=== PATIENT | female | born 1990 | race Two or more races ===

== ENCOUNTER 2024-03-13 05:55 | Day surgery (SDC) | payer MEDICAID, SELFPAY ==
[2024-03-11 10:50] VITALS: BMI 46.7
--- NOTE | 2024-03-11 10:55 | EKG_ITS ---
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
[2024-03-11 11:26] LABS: Basophils # (Auto) 0.1 Thou/mm3 (0.0-0.2); Basophils % (Auto) 0 % (0-2.5); Eosinophils # (Auto) 0.3 Thou/mm3 (0.0-0.5); Eosinophils % (Auto) 2 % (0-10); Hematocrit 39.5 % (36.0-46.0); Hemoglobin 13.2 g/dL (12.0-16.0); Immature Granulocytes % (Auto) 0 % (0-0); Immature Granulocytes Auto 0.06 Thou/mm3 (0.00-0.00); Lymphocytes # (Auto) 3.6 Thou/mm3 (1.0-4.8); Lymphocytes % (Auto) 26 % (10-50); Mean Corpuscular HGB Conc 33.4 g/dl (31.0-37.0); Mean Corpuscular Hemoglobin 28.3 pg (25.0-35.0); Mean Corpuscular Volume 85 fL (80-100); Monocytes # (Auto) 0.6 Thou/mm3 (0.0-0.8); Monocytes % (Auto) 4 % (0-12); Neutrophils # (Auto) 9.3 Thou/mm3 (1.8-7.7); Neutrophils % (Auto) 67 % (37-80); Nucleated Red Blood Cell % 0 /100 WBC (0); Platelet Count 341 Thou/mm3 (140-440); RDW Standard Deviation 41.2 fL (36.4-46.3); Red Blood Count 4.67 Miln/mm3 (4.00-5.20); White Blood Count 13.9 Thou/mm3 (3.6-11.0)
[2024-03-11 11:40] LABS: HCG,Qualitative Serum Negative
[2024-03-11 11:44] LABS: Alanine Aminotransferase 68 U/L (10-49); Albumin/Globulin Ratio 1.7 (1.2-2.2); Alkaline Phosphatase 162 U/L (46-116); Anion Gap 9 (7-16); Aspartate Amino Transferase 34 U/L (0-34); BUN/Creatinine Ratio 19 Ratio (12-20); Bilirubin,Total 1.2 mg/dL (0.3-1.2); Blood Urea Nitrogen 13 mg/dL (9-23); Calcium 9.8 mg/dL (8.3-10.6); Calcium (Corrected) 9.8 mg/dL (8.5-10.1); Carbon Dioxide 24.9 mMol/L (20.0-31.0); Chloride 104 mMol/L (98-107); Creatinine (Component) 0.7 mg/dL (0.6-1.3); Estimated Creatinine Clearance 136.8 mL/min (>60); Globulin 2.9 gm/dL (2.3-3.5); Glucose 104 mg/dL (74-106); Osmolality,Calculated 275 (275-295); Sodium 138 mMol/L (136-145); Total Protein 7.9 gm/dL (5.7-8.2); eGFR > 60 See Note
--- NOTE | 2024-03-11 12:54 | SUR.PREOP ---
WBC 13.9, Dr Pepe notified and ok to proceed.
[2024-03-13] VITALS (7 sets, daily range): BP systolic 112–133; BP diastolic 64–81; PULSE 72–86; RESP 12–20; TEMP 36.2–36.7; O2SAT 99–100; BMI 47.2
[2024-03-13] MEDS: RINGERS LACTATED 1000 ML 1,000 ML 20 ML IV (06:34)
--- NOTE | 2024-03-13 08:18 | ESOP_ITS ---
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 Her identity was confirmed using double identifiers, and she was placed on the operating table. General anesthesia was administered, and the airway was secured. The patient was positioned in the dorsal lithotomy position in Hernán stirrups. The abdomen and perineum were prepped in the usual sterile fashion, and sterile drapes were applied. The bladder was emptied with a straight catheter, and a sponge stick was inserted into the vagina for uterine manipulation. A 5 mm incision was made at the base of the umbilicus using a scalpel. Laparoscopic entry was achieved under direct visualization with an Optiview laparoscopic trocar. Once intra-abdominal placement was confirmed, pneumoperitoneum was established and insufflated to 15 mmHg. The camera was introduced, and a thorough initial survey of the abdomen was performed. The uterus and adnexa were observed to be within normal limits, with no gross abnormalities identified in the upper abdomen. Two accessory ports were placed bilaterally, 2 cm superior and medial to the anterior superior iliac spine (ASIS). The Enseal 37 mm curved jaw device was used to perform a bilateral salpingectomy in the usual manner. The dissection sites were inspected and noted to have satisfactory hemostasis. All instruments were removed, and pneumoperitoneum was desufflated. The laparoscopic ports were withdrawn, and the skin was closed with 4-0 Monocryl in a subcuticular fashion. The surgical site was cleaned, and sterile dressings were applied. The patient was undraped, anesthesia was reversed, and she was transferred to the recovery room awake and in stable condition. The procedure was well-tolerated. Instrument, sponge, and lap counts were correct ?2, and no complications were encountered. Estimated blood loss (ml): 10 Complications: none Surgical staff Operation Date: 03/13/24 07:45 Case Staff Anesthesiologist: Nestor Crabtree RN First Assistant: Carrie Morris Diagnosis Discharge Diagnosis (1) Encounter for sterilization: Status: Acute Problem List Completed Was Problem List Reviewed/Reconciled?: Yes
--- NOTE | 2024-03-13 08:22 | SUR.PHASEI ---
0822 Patient arrived to recovery resting comfortably in [facility], drowsy and able to arouse with verbal prompting, breathing unlabored, vital signs stable, denies pain, dressing intact to lower abdomen; dermabond, no bleeding noted, bilateral radial pulses present when palpated, report received from Jassi ZAMAN and Dr. Crabtree
--- NOTE | 2024-03-13 09:19 | SUR.PHASEII ---
0919 Patient meets discharge criteria from recovery, awake and alert, breathing unlabored, vital sign stable, denies pain, dressing intact; no bleeding noted, patient drinking 7up; tolerating well, denies nausea, patient assisted with dressing into her clothing by her daughter, discharge instructions given to patient and patients / daughter with the assistance with telephone accounting systems analyst Martina ID# [id number], signed discharge instructions. Patient given all her belongings prior to discharge, transported via wheelchair and left in a private vehicle.
== END 2024-03-13 09:19 | disposition home or self-care (01) ==
PROVIDERS: PCP Family Medicine; Referring Provider Obstetrics & Gynecology; Visit Provider Obstetrics & Gynecology
PROC: (CPT 58720; principal; 2024-03-13 07:30)
DX: Z30.2 Encounter for sterilization (principal); Z01.810 Encounter for preprocedural cardiovascular examination
CPT/HCPCS: 58661; 36415; 80053; 84703; 85025; 86850; 86900; 86901; 93005; A4217; A4649; J1885; J2250; J2405; J2704; J2765; J3010; J3490; J7120; A9270

== ENCOUNTER 2024-09-25 23:08 | Emergency (ER) | payer MEDICAID, SELFPAY ==
[2024-09-25 23:09] VITALS: BMI 44.2
[2024-09-25 23:35] VITALS: BP 159/82; PULSE 96; RESP 19; TEMP 36.8; O2SAT 97
--- NOTE | 2024-09-26 00:03 | EDNOTE_ITS ---
ED Female Urogenital RME/HPI General Chief complaint: General Adult/Misc Complain Stated complaint: PAINFUL LUMP R LABIA Time Seen by Provider: 09/25/24 23:47 Arrival date/time: 09/25/24 23:08 RME / HPI RME / HPI Narrative: This section includes all my notes and documentations, including HPI, PE, and ED course. William Cortez MD HPI: 33yo female here for a painful lump to her right vaginal area. Patient states the lump started developing a few days ago and has been getting progressively worse. No other complaints reported. ROS: All negative except as documented in HPI. Physical Exam: General: Alert and oriented. No acute distress when remaining still. Eyes: Conjunctivae and lids clear. ENT: No nasal congestion. Neck: Supple. Lungs: No respiratory distress. Abdomen: Soft and nontender. Normal bowel sounds. No distension. No rebound or guarding. 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 [place]-sized abscess noted in right labia majora area. Skin: Warm and dry. Neuro: Alert and oriented X 3. At this point, diagnoses include vaginal abscess. Treatment here included incision and drainage (see procedure note) and Rocephin 1 g IM. She felt better. Provided wound care instructions and recommended outpatient follow-up. Based on my best medical judgment, made decision no further evaluation or treatment indicated at this time. Patient understands and agrees to the discharge instructions customized and printed, see below. Discharge Instructions from Dr. Cortez: ?Your abscess was successfully incised and drained pus. ?Take cefdinir and clindamycin to help kill the germs causing your infection. ?Three times per day, soak in warm water with antibacterial soap and Epsom salt. Try to gently squeeze out more pus before the wound closes. ?After drying as much as possible, apply new dressing. ?See a private doctor on 09/29/2024 for recheck and further care, to make sure you healed without any complications. If not, asked for a referral to see parachute packer to help you. ?-Seek immediate medical care with fever > 100.4, spreading redness, or with any concerns. William Cortez MD Related Data Home Medications ?Medication ?Instructions ?Recorded ?Confirmed labetalol 200 mg tablet 200 mg PO DAILY 03/11/24 Previous Rx's ?Medication ?Instructions ?Recorded cefdinir 300 mg capsule 300 mg PO BID #14 [facility] 09/26 clindamycin HCl 300 mg capsule 300 mg PO QID 7 days #2 8 [facility] 09/26/24 Allergies Allergy/AdvReac Type Severity Reaction Status Date / Time No Known Allergies Allergy Verified 09/25/24 23:13 Review of Systems Review of Systems Systems Reviewed: All systems reviewed, normal except as documented Past Medical History Past Medical History NEUROLOGIC: Negative Neurological Disorders, Seizures or Migraine CARDIAC: Positive Cardiac Disorders and Hypertension; Negative Myocardial Infarction, Cardiac Arrhythmia, Atrial Fibrillation, Angina, Heart Murmur, Coronary Artery Disease, Atherosclerotic Heart Disease, Peripheral Vascular Disease, Hypercholesterolemia, Aneurysm, Congestive Heart Failure, Congenital Heart Disease, Valvular Heart Disease, Rheumatic Fever, Cardiomyopathy, Edema, Pericarditis, Cellulitis, Deep Vein Thrombosis, Hypotension or Varicose Veins RESPIRATORY: Negative Chronic Obstructive Pulmonary Disease (COPD) GASTROINTESTINAL: Positive Gastrointestinal Disorders and Obesity; Negative Hepatitis GENITOURINARY: Negative Genitourinary Disorders or Renal Disease REPRODUCTIVE: Positive Previous Pregnancies (7); Negative Pelvic Inflammatory Disease MUSCULOSKELETAL: Negative Musculoskeletal Disorders ENDOCRINE: Positive Endocrine Disorders; Negative Diabetes Mellitus Type 1 or Diabetes Mellitus Type 2 HEMATOLOGIC: Negative Blood Disorders OTHER HISTORY: Positive Chicken Pox; Negative Hospitalization, Autoimmune Disease, Shingles, Falls, Blood Transfusions, Blood Transfusion Reaction, Anesthesia Reactions, MRSA, Clostridium Difficile or Cancer Family History FAMILY HISTORY: Positive Family Surgery; Negative Family Psychiatric Problems, Family Respiratory Disorders, Family Cardiac Disorders, Family Gastrointestinal Problems, Family Cancer or Family Anesthesia Reaction Surgical History SURGICAL: Positive Abdominal Surgery; Negative Cardiac Surgery, Pacemaker, Endocrine Surgery, Ear Surgery, Nephrectomy, Joint Replacement, Neurologic Surgery, Mastectomy or Section Social History SMOKING STATUS: Never smoker SECOND HAND EXPOSURE: No ED Exam Narrative Physical exam: As noted in HPI. Course Quality Measures none Orders Category Date Time Status cefTRIAXone [Rocephin] 1,000 mg Med 09/26/24 00:36 Discontinued Lidocaine 1% 20 ml [Xylocaine 1% 20 ML] 2.1 ml IM X1 Vital Signs Vital signs: Vital Signs Temperature 98.2 F 09/25/24 23:35 Pulse Rate 96 09/25/24 23:35 Respiratory Rate 19 09/25/24 23:35 Blood Pressure 159/82 H 09/25/24 23:35 Pulse Oximetry (%) 97 09/25/24 23:35 Oxygen Delivery Method Room Air 09/25/24 23:35 PROCEDURES: Abscess I/D Site: other (vaginal area) Side (if applicable): right Technique: other (incised with #15 blade) Amount of fluid expressed (mL): 1 Irrigation: Yes Packing used?: none Urogenital - Female MDM Narrative MDM Narrative:: 33yo female here for a painful lump to her right vaginal area. Patient states the lump started developing a few days ago and has been getting progressively worse. No other complaints reported. Patient data External records reviewed:: [facility] previous records (Per chart review, patient has no relevant previous ED visits.) Clinical information provided by:: patient Social determinants that could affect healthcare access:: none Patient has the following chronic illnesses:: HTN How is presenting disease/condition affected by chronic disease/condition?: uneffected by Evaluation data The following diagnostics were reviewed and interpreted by me:: other (specify) (none) Lab and/or radiology exams considered but not ordered:: none Interpretation Summary: none Medications / Prescriptions Medications or Prescriptions considered but not ordered:: none Medication administrations:: Medication Administration History Discontinued Medications Ceftriaxone Sodium 1,000 mg/ (Lidocaine HCl 2.1 ml) 0 mg IM X1 ONE Stop: 09/26/24 00:37 Last Admin: 09/26/24 00:43 Dose: 1,000 mg Documented By: DT Rocephin and incision and drainage. Consultations Consultation(s) initiated? (list below): No Diagnosis Urogenital Female Differential Diagnosis: urinary tract infection, bacterial vaginosis, trichomoniasis, cervicitis, ovarian cyst, vaginitis, ruptured ovarian cyst, cystitis and other (Abscess) Most likely diagnosis given after review of the tests above:: Abscess Admission Indicated Admission indicated?: not indicated Explain why admission is indicated or not indicated:: With significant improvement and no condition needing emergent intervention, there was no indication for admission. Admission Request Was there a request for admission?: No Disposition Plan Disposition Plan: Discharge Discharge Attestation Discharge Attestation: The patient and all family members were given an opportunity to ask questions and understood the discharge instructions. Discharge instructions specifically effects, indications for sooner follow up or return to the emergency department, and the expected course of current diagnosis. Patient condition: Stable Discharge Plan Plan Patient Disposition: HOME (Self Care) Prescriptions/Referrals Prescriptions/Med Rec: New cefdinir 300 mg capsule 300 mg PO BID Qty: 14 0RF clindamycin HCl 300 mg capsule 300 mg PO QID 7 Days Qty: 28 0RF No Action labetalol 200 mg tablet 200 mg PO DAILY Patient Comments: TAKE 2 TABLETS BY MOUTH TWICE DAILY FOR 30 DAYS Referrals: Randall Lezama MD [Primary Care Provider] - In 1 week Problem List Clinical Impression: Abscess Patient/Caregiver Discharge Instructions Discharge Activity: activity as tolerated Education Materials: ED Abscess, Incision And Drainage Additional Instructions: Discharge Instructions from Dr. Cortez: ?Your abscess was successfully incised and drained pus. ?Take cefdinir and clindamycin to help kill the germs causing your infection. ?Three times per day, soak in warm water with antibacterial soap and Epsom salt. Try to gently squeeze out more pus before the wound closes. ?After drying as much as possible, apply new dressing. ?See a private doctor on 09/29/2024 for recheck and further care, to make sure you healed without any complications. If not, asked for a referral to see parachute packer to help you. ?-Seek immediate medical care with fever > 100.4, spreading redness, or with any concerns. Print Language: Maldivian Stand Alone Forms: Debi Award Info., Patient Portal Info Letter
[2024-09-26] MEDS: cefTRIAXone 1,000 MG, LIDOCAINE 1% 20 ML 2.1 ML IM (00:43)
[2024-09-26 00:55] VITALS: BP 160/75; PULSE 82; RESP 14; TEMP 37; O2SAT 99
== END 2024-09-26 01:10 | disposition home or self-care (01) ==
PROVIDERS: Emergency Provider Emergency Medicine; PCP Family Medicine
DX: N76.4 Abscess of vulva (principal)
CPT/HCPCS: 56405; 96372; 99284; J0696; J3490

== ENCOUNTER 2024-11-17 19:06 | Emergency (ER) | payer MEDICAID, SELFPAY ==
[2024-11-17 19:07] VITALS: BMI 45.7
[2024-11-17 19:23] VITALS: BP 134/89; PULSE 97; RESP 18; TEMP 37.2; O2SAT 97
--- NOTE | 2024-11-17 19:47 | XR_ITS ---
Examination: Knee, right , 3 views Technique: Knee AP, lateral, oblique 3 views Date and time of exam: November 17, 2024, 2016 hrs. Indications: Injury to the knee 5 days ago with joint popping and pain Findings: No fracture or dislocation. Moderate knee effusion. Mild narrowing medial joint space Impression: No acute fracture Moderate knee effusion
--- NOTE | 2024-11-17 20:48 | PD.EDLOWEX ---
Lower Extremity Injury RME/HPI General Chief Complaint: Extremity Injury, Lower Stated Complaint: R KNEE INJURY Time Seen by Provider: 11/17/24 19:09 Source: patient Arrival date/time: 11/17/24 19:06 This is a case of [id number]-year-old female who came in in the emergency room due to right knee pain and right knee swelling history of present illness started 2 hours prior to arrival in the emergency room patient was walking lifting heavy boxes accidentally twisted his right knee sustaining pain and swelling due to worsening of the pain thus patient decided to sought consult here in the emergency room Limitations: no limitations Related Data Home Medications ?Medication ?Instructions ?Recorded ?Confirmed labetalol 200 mg tablet 200 mg PO DAILY 03/11/24 03/11/24 Previous Rx's ?Medication ?Instructions ?Recorded cefdinir 300 mg capsule 300 mg PO BID #14 caps 09/26/24 ibuprofen 800 mg tablet 800 mg PO Q8H PRN pain #20 tabs 11/17/24 Allergies Allergy/AdvReac Type Severity Reaction Status Date / Time No Known Allergies Allergy Verified 11/17/24 19:11 Review of Systems Review of Systems Systems Reviewed: All systems reviewed, normal except as documented Constitutional Constitutional: Reports system reviewed and no additional complaints, except as documented and Reports as per HPI ENT Ears, Nose, Mouth, and Throat: Denies neck pain Cardiovascular Cardiovascular: Reports system reviewed and no additional complaints, except as documented and Reports as per HPI Respiratory Respiratory: Reports system reviewed and no additional complaints, except as documented and Reports as per HPI Gastrointestinal Gastrointestinal: Reports system reviewed and no additional complaints, except as documented and Reports as per HPI Genitourinary Genitourinary: Reports system reviewed and no additional complaints, except as documented and Reports as per HPI Musculoskeletal Musculoskeletal: Reports system reviewed and no additional complaints, except as documented, Reports as per HPI, Denies back pain and Denies neck pain Neurologic Neurologic: Reports system reviewed and no additional complaints, except as documented and Reports as per HPI Past Medical History Past Medical History NEUROLOGIC: Negative Neurological Disorders, Seizures or Migraine CARDIAC: Positive Cardiac Disorders and Hypertension; Negative Myocardial Infarction, Cardiac Arrhythmia, Atrial Fibrillation, Angina, Heart Murmur, Coronary Artery Disease, Atherosclerotic Heart Disease, Peripheral Vascular Disease, Hypercholesterolemia, Aneurysm, Congestive Heart Failure, Congenital Heart Disease, Valvular Heart Disease, Rheumatic Fever, Cardiomyopathy, Edema, Pericarditis, Cellulitis, Deep Vein Thrombosis, Hypotension or Varicose Veins RESPIRATORY: Negative Chronic Obstructive Pulmonary Disease (COPD) GASTROINTESTINAL: Positive Gastrointestinal Disorders and Obesity; Negative Hepatitis GENITOURINARY: Negative Genitourinary Disorders or Renal Disease REPRODUCTIVE: Positive Previous Pregnancies (7); Negative Pelvic Inflammatory Disease MUSCULOSKELETAL: Negative Musculoskeletal Disorders ENDOCRINE: Positive Endocrine Disorders; Negative Diabetes Mellitus Type 1 or Diabetes Mellitus Type 2 HEMATOLOGIC: Negative Blood Disorders OTHER HISTORY: Positive Chicken Pox; Negative Hospitalization, Autoimmune Disease, Shingles, Falls, Blood Transfusions, Blood Transfusion Reaction, Anesthesia Reactions, MRSA, Clostridium Difficile or Cancer Family History FAMILY HISTORY: Positive Family Surgery; Negative Family Psychiatric Problems, Family Respiratory Disorders, Family Cardiac Disorders, Family Gastrointestinal Problems, Family Cancer or Family Anesthesia Reaction Surgical History SURGICAL: Positive Abdominal Surgery; Negative Cardiac Surgery, Pacemaker, Endocrine Surgery, Ear Surgery, Nephrectomy, Joint Replacement, Neurologic Surgery, Mastectomy or Section Social History SMOKING STATUS: Never smoker SECOND HAND EXPOSURE: No ED Exam General Limitations: Present no limitations General appearance: Present alert, in no apparent distress and other (Patient is awake alert oriented not in distress nontoxic looking well-hydrated well-nourished) Head Head exam: Present atraumatic, normocephalic and normal inspection Eye Eye exam: Present normal appearance, PERRL and EOMI ENT ENT exam: Present normal exam, normal oropharynx, mucous membranes moist and other (HEENT exam is normal and unremarkable) Neck Neck exam: Present normal inspection, full ROM and trachea midline; Absent tenderness, meningismus, lymphadenopathy or thyromegaly Chest Chest inspection: Present normal inspection and symmetric chest wall rise; Absent tenderness Respiratory Respiratory exam: Present normal lung sounds bilaterally; Absent respiratory distress, wheezes, stridor, accessory muscle use or prolonged expiratory phase Cardiovascular Cardiovascular exam: Present regular rate, normal rhythm and normal heart sounds; Absent bradycardia, tachycardia, irregular rhythm, systolic murmur or diastolic murmur Abdominal Exam Abdominal exam: Present soft and normal bowel sounds Extremities Exam Extremities exam: Present normal inspection and full ROM Expanded Lower Extremity Exam Hip/Pelvis exam: Present normal inspection and full ROM; Absent tenderness or swelling Upper leg exam: Present normal inspection; Absent tenderness or swelling Knee exam: Present tenderness, swelling, effusion, knee extension intact and other (No prepatellar subluxation tenderness or swelling ROM limited due to pain sensory intact capillary refill less than 2 seconds pulses were full and equal); Absent abrasion, laceration, ecchymosis, deformity, crepitus, dislocation, erythema, anterior drawer sign, posterior draw sign, pain with valgus, laxity with valgus, pain with varus or laxity with varus Lower leg exam: Present normal inspection, full ROM, Achilles tendon intact and other (Negative Solis sign no calf tenderness); Absent tenderness, swelling or Homans' sign Ankle exam: Present normal inspection and full ROM; Absent tenderness or swelling Back Exam Back exam: Present normal inspection and full ROM Neurological Exam Neurological exam: Present alert, oriented X3, CN II-XII intact, reflexes normal and other (Gait is unstable due to pain on the right knee); Absent motor sensory deficit Psychiatric Psychiatric exam: Present normal affect and normal mood Skin Skin exam: Present warm, dry, intact and normal color Course Quality Measures none Orders Category Date Time Status Apply knee immobilizer NOW Care 11/17/24 20:45 Active XR knee RT 3V Stat Exams 11/17/24 19:47 Taken HYDROcodone*/APAP 5/325 [Hanson 5/325] Med 11/17/24 20:45 Once 1 tab PO X1 ONE Ketorolac Inj [Toradol Inj] Med 11/17/24 20:45 Once 30 mg IM X1 ONE Vital Signs Vital signs: Vital Signs Temperature 98.9 F 11/17/24 19:23 Pulse Rate 97 11/17/24 19:23 Respiratory Rate 18 11/17/24 19:23 Blood Pressure 134/89 H 11/17/24 19:23 Pulse Oximetry (%) 97 11/17/24 19:23 Oxygen Delivery Method Room Air 11/17/24 19:23 Oxygen saturation is 97% in room air Extremity Injury, Lower MDM Narrative MDM Narrative:: This is a case of [id number]-year-old female who came in in the emergency room due to right knee pain and right knee swelling history of present illness started 2 hours prior to arrival in the emergency room patient was walking lifting heavy boxes accidentally twisted his right knee sustaining pain and swelling due to worsening of the pain thus patient decided to sought consult here in the emergency room physical examination patient is awake alert oriented not in distress nontoxic looking physical examination showed a moderate tenderness around the anterior right knee with mild swelling with knee joint effusion no parapatellar subluxation tenderness or swelling no cellulitis no crepitation no deformity ROM is limited due to pain pulses were full and equal capillary refill less than 2 seconds sensory is intact based on my physical examination and history patient symptoms suggestive of knee sprain and knee joint effusion x-ray were normal knee immobilizer was applied patient tolerated well the procedure neurovascular intact RICE treatment will continue by the patient at home patient was given Toradol and Hanson which patient condition markedly improved patient will follow-up with PCP to be referred to orthopedic surgeon for MRI to rule out meniscus or ligament injury for any worsening symptoms or any emergent concerns she will return in the emergency room immediately or call 911 Patient was discharged with comfortable condition walking with stable gait. Patient verbalized no further complains explained diagnosis and answered patient question. Patient is comfortable with the proposed management plan including the need to follow up with his/her primary care physician and any specialist if applicable Discussed patient for any urgent condition or worsening sx, He/She needed to go to emergency room immediately or call 911. Patient acknowledge the responsibility to follow up as instructed and to monitor her/his symptoms. For any persistence of the symptoms for more than 3-5 days return precaution advised. Discussed the result of the test and was given printed discharge instruction Patient data External records reviewed:: [facility] previous records Clinical information provided by:: patient and family Social determinants that could affect healthcare access:: none (None) Patient has the following chronic illnesses:: None How is presenting disease/condition affected by chronic disease/condition?: no chronic disease Evaluation data The following diagnostics were reviewed and interpreted by me:: radiology exam(s) Lab and/or radiology exams considered but not ordered:: Reviewed Interpretation Summary: Reviewed Medications / Prescriptions Medications or Prescriptions considered but not ordered:: Given Medication administrations:: Medication Administration History Hydrocodone Bitart/Acetaminophen (Hydrocodone/Apap 5/325 Tablet) 1 tab PO X1 ONE Stop: 11/17/24 20:46 Ketorolac Tromethamine (Ketorolac Inj 60 Mg/2 Ml Vial) 30 mg IM X1 ONE Stop: 11/17/24 20:46 Given Consultations Consultation(s) initiated? (list below): No Diagnosis Extremity Injury, Lower Differential Diagnosis: other (Knee sprain knee fracture knee joint effusion osteoarthritis) Most likely diagnosis given after review of the tests above:: Knee sprain knee effusion Admission Indicated Admission indicated?: not indicated Explain why admission is indicated or not indicated:: Not indicated Admission Request Was there a request for admission?: No Admission Attestation Admission request attestation: Not indicated Disposition Plan Disposition Plan: Discharge Discharge Attestation Discharge Attestation: The patient and all family members were given an opportunity to ask questions and understood the discharge instructions. Discharge instructions specifically effects, indications for sooner follow up or return to the emergency department, and the expected course of current diagnosis. Patient condition: Stable Discharge Plan Plan Patient Disposition: HOME (Self Care) Patient condition on transfer: Stable Prescriptions/Referrals Prescriptions/Med Rec: New ibuprofen 800 mg tablet 800 mg PO Q8H PRN (Reason: pain) Qty: 20 0RF No Action labetalol 200 mg tablet 200 mg PO DAILY Patient Comments: TAKE 2 TABLETS BY MOUTH TWICE DAILY FOR 30 DAYS cefdinir 300 mg capsule 300 mg PO BID Qty: 14 0RF Referrals: Randall Lezama MD [Primary Care Provider, [facility]] - In 1 week Problem List Clinical Impression: Right knee sprain, Effusion of knee joint Patient/Caregiver Discharge Instructions Education Materials: ED Knee Immobilizer, ED Knee Effusion, ED Knee Sprain, ED RICE Additional Instructions: Follow-up with your primary care physician in 2 days for reevaluation and to be referred to orthopedic surgeon for further evaluation and treatment of knee joint effusion for possible MRI to rule out meniscus or ligament injury worsening symptoms or any emergent concerns such as numbness weakness tingling sensation call 911 or go to the nearest emergency room ice pack every 2 hours for 30 minutes for 24 hours then alternate with warm compress elevate to decrease swelling keep the knee immobilizer in place until cleared by your primary care physician take your Tylenol Motrin for pain Print Language: Angolan Stand Alone Forms: Debi Award Info., Patient Portal Info Letter GERALD/COMPA Supervising Physician GERALD/COMPA Supervising Physician: dr melo
[2024-11-17] MEDS: HYDROcodone/APAP 5/325 TABLET 1 TAB PO (21:01)
[2024-11-17] MEDS: KETOROLAC INJ 30 MG/ML VIAL IM (21:02)
== END 2024-11-17 21:05 | disposition home or self-care (01) ==
PROVIDERS: Emergency Provider Emergency Medicine; PCP Family Medicine
DX: S83.91XA Sprain of unspecified site of right knee, initial encounter (principal); M25.461 Effusion, right knee; X50.0XXA Overexertion from strenuous movement or load, initial encounter; Y93.01 Activity, walking, marching and hiking; Y99.0 Civilian activity done for income or pay
CPT/HCPCS: 73562; 96372; 99283; J1885; A9270

== ENCOUNTER 2024-11-21 12:48 | Emergency (ER) | payer MEDICAID, SELFPAY ==
[2024-11-21 12:50] VITALS: BMI 45.7
[2024-11-21 13:09] VITALS: BP 130/84; PULSE 94; RESP 18; TEMP 36.8; O2SAT 98
--- NOTE | 2024-11-21 13:23 | PD.EDEXREM ---
ED Extremity Problem RME/HPI General Chief complaint: Extremity Problem,Nontraumatic Stated complaint: RIGHT KNEE PAIN Time Seen by Provider: 11/21/24 12:50 Source: patient Arrival date/time: 11/21/24 12:48 33-year-old female with no known medical history presents to the emergency room with a chief complaint of tenderness and swelling to her right knee x 4 days Mode of arrival: ambulatory Limitations: no limitations Related Data Home Medications ?Medication ?Instructions ?Recorded ?Confirmed labetalol 200 mg tablet 200 mg PO DAILY 03/11/24 03/11/24 Previous Rx's ?Medication ?Instructions ?Recorded cefdinir 300 mg capsule 300 mg PO BID #14 caps 09/26/24 ibuprofen 800 mg tablet 800 mg PO Q8H PRN pain #20 tabs 11/17/24 Allergies Allergy/AdvReac Type Severity Reaction Status Date / Time No Known Allergies Allergy Verified 11/21/24 12:49 Review of Systems Review of Systems Systems Reviewed: All systems reviewed, normal except as documented Constitutional Constitutional: Reports system reviewed and no additional complaints, except as documented, Denies fatigue, Denies fever(s), Denies headache(s) and Denies weakness Eyes Eyes: Reports system reviewed and no additional complaints, except as documented, Denies blurry vision and Denies change in vision ENT Ears, Nose, Mouth, and Throat: Reports system reviewed and no additional complaints, except as documented, Denies otalgia, Denies headache(s), Denies nasal congestion, Denies throat swelling and Denies vertigo Cardiovascular Cardiovascular: Reports system reviewed and no additional complaints, except as documented, Denies chest pain, Denies dyspnea and Denies dyspnea on exertion Respiratory Respiratory: Reports system reviewed and no additional complaints, except as documented, Denies chest congestion, Denies cough, Denies dyspnea, Denies dyspnea on exertion and Denies wheezing Gastrointestinal Gastrointestinal: Reports system reviewed and no additional complaints, except as documented, Denies abdominal pain, Denies cramping, Denies nausea and Denies vomiting Genitourinary Genitourinary: Reports system reviewed and no additional complaints, except as documented Musculoskeletal Musculoskeletal: Reports system reviewed and no additional complaints, except as documented, Reports arthralgias, Denies back pain, Reports joint swelling and Reports limited range of motion Integumentary/Breasts Skin/Breast: Reports system reviewed and no additional complaints, except as documented and Denies wounds Neurologic Neurologic: Reports system reviewed and no additional complaints, except as documented, Denies confusion, Denies headache(s), Denies lack of coordination, Denies vertigo and Denies weakness Psychiatric Psychiatric: Reports system reviewed and no additional complaints, except as documented, Denies anxiety, Denies confusion, Denies depression, Denies paranoia, Denies suicidal ideation and Denies tactile hallucinations Endocrine Endocrine: Reports system reviewed and no additional complaints, except as documented and Denies fatigue Hematologic/Lymphatic Hematologic/Lymphatic: Reports system reviewed and no additional complaints, except as documented and Denies lymphadenopathy Allergic/Immunologic Allergic/Immunologic: Reports system reviewed and no additional complaints, except as documented, Denies throat swelling, Denies urticaria and Denies wheezing Past Medical History Past Medical History NEUROLOGIC: Negative Neurological Disorders, Seizures or Migraine CARDIAC: Positive Cardiac Disorders and Hypertension; Negative Myocardial Infarction, Cardiac Arrhythmia, Atrial Fibrillation, Angina, Heart Murmur, Coronary Artery Disease, Atherosclerotic Heart Disease, Peripheral Vascular Disease, Hypercholesterolemia, Aneurysm, Congestive Heart Failure, Congenital Heart Disease, Valvular Heart Disease, Rheumatic Fever, Cardiomyopathy, Edema, Pericarditis, Cellulitis, Deep Vein Thrombosis, Hypotension or Varicose Veins RESPIRATORY: Negative Chronic Obstructive Pulmonary Disease (COPD) GASTROINTESTINAL: Positive Gastrointestinal Disorders and Obesity; Negative Hepatitis GENITOURINARY: Negative Genitourinary Disorders or Renal Disease REPRODUCTIVE: Positive Previous Pregnancies (7); Negative Pelvic Inflammatory Disease MUSCULOSKELETAL: Negative Musculoskeletal Disorders ENDOCRINE: Positive Endocrine Disorders; Negative Diabetes Mellitus Type 1 or Diabetes Mellitus Type 2 HEMATOLOGIC: Negative Blood Disorders OTHER HISTORY: Positive Chicken Pox; Negative Hospitalization, Autoimmune Disease, Shingles, Falls, Blood Transfusions, Blood Transfusion Reaction, Anesthesia Reactions, MRSA, Clostridium Difficile or Cancer Family History FAMILY HISTORY: Positive Family Surgery; Negative Family Psychiatric Problems, Family Respiratory Disorders, Family Cardiac Disorders, Family Gastrointestinal Problems, Family Cancer or Family Anesthesia Reaction Surgical History SURGICAL: Positive Abdominal Surgery; Negative Cardiac Surgery, Pacemaker, Endocrine Surgery, Ear Surgery, Nephrectomy, Joint Replacement, Neurologic Surgery, Mastectomy or Section Social History SMOKING STATUS: Never smoker SECOND HAND EXPOSURE: No ED Exam General Limitations: Present no limitations General appearance: Present alert and in no apparent distress Head Head exam: Present atraumatic Eye Eye exam: Present normal appearance, PERRL and EOMI ENT ENT exam: Present normal exam, normal oropharynx and mucous membranes moist Neck Neck exam: Present normal inspection, full ROM and trachea midline Chest Chest inspection: Present normal inspection and symmetric chest wall rise Respiratory Respiratory exam: Present normal lung sounds bilaterally Cardiovascular Cardiovascular exam: Present regular rate, normal rhythm and normal heart sounds Abdominal Exam Abdominal exam: Present soft and normal bowel sounds Extremities Exam Extremities exam: Present normal inspection and full ROM Expanded Lower Extremity Exam Hip/Pelvis exam: Present normal inspection Upper leg exam: Present normal inspection Knee exam: Present full ROM, tenderness, swelling, effusion, pain with valgus and pain with varus Gait: observed and limited by pain Back Exam Back exam: Present normal inspection and full ROM Neurological Exam Neurological exam: Present alert, oriented X3 and CN II-XII intact Psychiatric Psychiatric exam: Present normal affect and normal mood Skin Skin exam: Present warm, dry, intact and normal color Course Quality Measures none Orders Category Date Time Status Ketorolac Inj [Toradol Inj] Med 11/21/24 13:17 Discontinued 30 mg IM X1 ONE Vital Signs Vital signs: Vital Signs Temperature 98.3 F 11/21/24 13:09 Pulse Rate 94 11/21/24 13:09 Respiratory Rate 18 11/21/24 13:09 Blood Pressure 130/84 11/21/24 13:09 Pulse Oximetry (%) 98 11/21/24 13:09 Oxygen Delivery Method Room Air 11/21/24 13:09 Extremity Problem MDM Narrative MDM Narrative:: 33-year-old female with no known medical history presents to the emergency room with a chief complaint of tenderness and swelling to her right knee x 4 days Patient is hemodynamically stable and in no apparent distress Physical examination shows tenderness and swelling to the patient's right knee. There is pain with valgus and varus maneuvers. Patient was seen here 11/17/2024 and x-rays were completed and were negative for any acute fracture or dislocation. The patient was given a knee brace and discharged and educated to follow-up with her primary care provider. Today patient states her pain has worsened. Patient states she has seen her primary care provider but was just discharged with no medication. I spoke to the patient and told her that she will need an MRI of her knee if her symptoms continue. Patient stated that she will go to her primary care provider's office tomorrow to make sure she has a referral for an MRI if her signs and symptoms get worse. Patient was discharged and educated to follow-up with primary care provider in the next 24 to 48 hours and return to the emergency room for any evidence of worsening signs or symptoms Patient data External records reviewed:: [facility] previous records Clinical information provided by:: patient Social determinants that could affect healthcare access:: none Patient has the following chronic illnesses:: No chronic illness How is presenting disease/condition affected by chronic disease/condition?: no chronic disease Evaluation data The following diagnostics were reviewed and interpreted by me:: lab results and radiology exam(s) Lab and/or radiology exams considered but not ordered:: Labs and radiology exams considered and ordered Interpretation Summary: N/A Medications / Prescriptions Medications or Prescriptions considered but not ordered:: Medication given Medication administrations:: Medication Administration History Discontinued Medications Ketorolac Tromethamine (Ketorolac Inj 60 Mg/2 Ml Vial) 30 mg IM X1 ONE Stop: 11/21/24 13:18 Medication given Consultations Consultation(s) initiated? (list below): No Diagnosis Extremity Problem Differential Diagnosis: other (Right knee sprain/right knee fracture/right knee dislocation) Most likely diagnosis given after review of the tests above:: Right knee sprain Admission Indicated Admission indicated?: not indicated Admission Request Was there a request for admission?: No Disposition Plan Disposition Plan: Discharge Discharge Attestation Discharge Attestation: The patient and all family members were given an opportunity to ask questions and understood the discharge instructions. Discharge instructions specifically effects, indications for sooner follow up or return to the emergency department, and the expected course of current diagnosis. Patient condition: Stable Discharge Plan Plan Patient Disposition: HOME (Self Care) Discharge Disposition comment: Stable Prescriptions/Referrals Prescriptions/Med Rec: No Action labetalol 200 mg tablet 200 mg PO DAILY Patient Comments: TAKE 2 TABLETS BY MOUTH TWICE DAILY FOR 30 DAYS cefdinir 300 mg capsule 300 mg PO BID Qty: 14 0RF ibuprofen 800 mg tablet 800 mg PO Q8H PRN (Reason: pain) Qty: 20 0RF Problem List Clinical Impression: Right knee sprain, Effusion of knee joint Patient/Caregiver Discharge Instructions Education Materials: ED JAMIN Wrap, ED Knee Sprain Additional Instructions: Please follow-up with your primary care provider in the next 24 to 48 hours If your signs and symptoms continue you will need an outpatient MRI of your right knee to assess for any ligament damage or tears For any evidence of worsening signs or symptoms return to the emergency room immediately Print Language: [place] Stand Alone Forms: Debi Award Info., Patient Portal Info Letter PA/CHEST PAINTING LEADER Supervising Physician PA/CHEST PAINTING LEADER Supervising Physician: Dr. Dias
[2024-11-21] MEDS: KETOROLAC INJ 60 MG/2 ML VIAL 30 MG IM (13:25)
== END 2024-11-21 13:40 | disposition home or self-care (01) ==
LOC: SERX 13:38
PROVIDERS: Emergency Provider Nurse Practitioner Family
DX: S83.91XA Sprain of unspecified site of right knee, initial encounter (principal); X58.XXXA Exposure to other specified factors, initial encounter
CPT/HCPCS: 99282; J1885